=== PATIENT | female | born 1970 | race Caucasian/White ===

== ENCOUNTER 2022-09-15 11:11 | Emergency (ER) | payer OTHER ==
[2022-09-15 11:52] VITALS: BP 157/85; PULSE 85
[2022-09-15] MEDS ORDERED: Lidocaine 1% 5 ML VIAL INJECT ONE (12:33)
[2022-09-15] MEDS ORDERED: Bacitracin Oint 1 GM U/D Packet TOP ONE (12:33)
[2022-09-15] MEDS ORDERED: Diphtheria,Pertussis(Acell),Tetanus Vaccine 0.5 ML Syringe IM ONE (12:34)
== END 2022-09-15 13:26 | disposition home or self-care (01) ==
LOC: JP.ED 11:11
DX: S61.216A Laceration without foreign body of right little finger without damage to nail, initial encounter (principal); Z23 Encounter for immunization; Z88.5 Allergy status to narcotic agent; W26.8XXA Contact with other sharp object(s), not elsewhere classified, initial encounter
CPT/HCPCS: 12001; 90471; 90715; 99282-25